=== PATIENT | male | born 1980 | race Caucasian/White ===

== ENCOUNTER 2024-05-26 07:56 | Day surgery (SDC) | payer OTHER, SELFPAY ==
[2024-05-26] VITALS (17 sets, daily range): BP systolic 93–132; BP diastolic 72–88; PULSE 65–85; RESP 14–20; TEMP 36.1–36.8; O2SAT 9–96; BMI 34.8
--- NOTE | 2024-05-26 | GALL_PTH ---
PATIENT: DEBRA NELSON LOC: [facility] [place][id number] AGE/SX: 43/M ROOM: RE05/26/[address]: Dr. Allen Cuba MD : 1980 BED: DIS: 05/26/2024 SPEC #: [id number] RECD: 05/26/24 13:36 STATUS: KAYKAY REAraceli #: [id number] HARRIET: 05/26/24 00:[address]: Allen Cuba DEPT: SURGICAL PATHOLOGY RECD BY: Sherman Chapin ENTERED: 05/26/24 13:36 SP TYPE: KOKO DORAN DR: KARLY Gudino Tissues: Gallbladder, NOS Procedures: Surgery Specimen Level III HEADER OPERATION: Laparoscopic cholecystectomy with IOC PRE-OP DIAGNOSIS: Cholecystitis TISSUE SUBMITTED: Gallbladder MICROSCOPIC DIAGNOSIS Gallbladder, cholecystectomy: Mild chronic cholecystitis. See comment. 05/27/2024 COMMENT No stones are identified in the container or in the gallbladder. MICROSCOPIC DESCRIPTION Slides are reviewed. GROSS DESCRIPTION Received is one container labeled with the patient's name and designated gallbladder. The specimen consists of a gallbladder measuring 6.5 cm in length and up to 4 cm in diameter. The external surface is pink-robles, smooth and glistening for the most part. Focally it is granular, hemorrhagic and contains cautery artifact. The gallbladder contains green-yellow mucoid bile. No stones are identified in the container or in the gallbladder. The mucosa is bile-stained and without any mass lesions. The gallbladder wall measures up to 0.5 cm in thickness. Increased amount of subserosal fat is noted. Tank Hoop Bender sections from the gallbladder and the cystic duct are submitted in one cassette. / SJ: 05/26/2024 TC:3 CPT: 43912
--- NOTE | 2024-05-26 08:09 | EKG12_ITS ---
Test Reason : PRE OP Blood Pressure : */* mmHG Vent. Rate : 78 BPM Atrial Rate : 78 BPM P-R Int : 174 ms QRS Dur : 84 ms QT Int : 380 ms P-R-T Axes : 3 -8 13 degrees QTcB Int : 433 ms Normal sinus rhythm Normal ECG No previous ECGs available Confirmed by BALWINDER JEREZ, FRANCI ([id number]), offline editor WERNER DUNN ([id number]) on 06/02/2024 6:43:03 AM Referred By: Allen Cuba Confirmed By: FRANCI BRITT MD
--- NOTE | 2024-05-26 08:38 | PCM.HP.STD ---
HPI - General General Date of Admission: 05/26/24 Date of Service: 05/26/24 Chief Complaint: Right upper quadrant pain HPI Narrative DEBRA NELSON, is a 43 M who presents for elective cholecystectomy. He has been having some right upper abdominal pain. Ultrasound showed some gallbladder wall thickening. I saw him in the office and offered a laparoscopic cholecystectomy as treatment. We discussed the details of the planned procedure and he wished to proceed. [facility] Medical History Cancer Rash PONV (postoperative nausea and vomiting) Rheumatoid arthritis Non-alcoholic cirrhosis Non-smoker Cholecystitis Acid reflux Abdominal pain Home Medications ?Medication ?Instructions ?Recorded ?Last Taken ?Type fenofibric acid (choline) 45 mg 45 mg PO QDAY 05/19/24 Unknown History capsule,delayed release fexofenadine 60 mg tablet (Charity 60 mg PO DAILY 05/19/24 Unknown History Allergy) multivitamin 1 tab PO QAM 05/19/24 Unknown History omega 1-soe-cgz-fish oil 300 2 cap PO QDAY 05/19/24 Unknown History mg-1,000 mg capsule (Fish Oil) omeprazole 20 mg capsule,delayed 20 mg PO QDAY 05/19/24 Unknown History release turmeric root extract 500 mg 500 mg PO QDAY 05/19/24 Unknown History capsule cholecalciferol (vitamin D3) 1,250 1,250 mcg PO MO 05/24/24 Unknown History mcg (50,000 unit) capsule etanercept 50 mg/mL (1 mL) 50 mg subcut TH 05/24/24 Unknown History subcutaneous pen injector (Enbrel SureClick) Allergy/AdvReac Type Severity Reaction Status Date / Time hydroxychloroquine Allergy Severe Rash Verified 05/24/24 08:23 Penicillins (PCN) Allergy Severe Hives Verified 05/24/24 08:23 Surgical History History of excision of mass (~2009) History of esophagogastroduodenoscopy (EGD) H/O hand surgery (~2004) H/O rhinoplasty History of liver biopsy Social History Smoking Status: Never smoker alcohol intake: never substance use type: does not use ROS Constitutional Constitutional: Reports systems reviewed and no addt'l complaints, except as documented Eyes Eyes: Reports systems reviewed and no addt'l complaints, except as documented ENT HEENT: Reports systems reviewed and no addt'l complaints, except as documented Cardiovascular Cardiovascular: Reports systems reviewed and no addt'l complaints, except as documented Respiratory/Chest Respiratory/Chest: Reports systems reviewed and no addt'l complaints, except as documented Gastrointestinal Gastrointestinal: Reports systems reviewed and no addt'l complaints, except as documented Genitourinary Genitourinary: Reports systems reviewed and no addt'l complaints, except as documented Physical Exam Const alert, oriented x3 and no apparent distress Assessment & Plan Assessment/Plan (1) Cholecystitis: PLAN: Plan The patient is a 43-year-old male with cholecystitis/cholelithiasis. He presents today for elective laparoscopic cholecystectomy. We discussed the details of the planned procedure and he wished to proceed. Surgery will begin shortly. Charges/Coding Visit Charges Inpatient E&M: 28963 Init Hosp L1
[2024-05-26] MEDS: 0.9% Normal Saline (1000mL) 1,000 ML 15 ML IV (08:59)
[2024-05-26 09:01] LABS: Hematocrit 42.7 % (40-54); Hemoglobin 14.4 g/dL (13.0-16.5); Mean Corp Hgb Conc 33.7 g/dL (32-36); Mean Corpuscular Volume 91.8 fL (80-94); Mean Platelet Vol. 9.8 fl (6.2-12.0); Platelet Count 276 K/mm3 (150-450); RBC Distribution Width CV 12.3 % (11.6-14.6); Red Blood Count 4.65 M/mm3 (4.6-6.2); White Blood Count 10.4 K/mm3 (4.4-11.0)
--- NOTE | 2024-05-26 09:08 | PCM.PRE.AN2 ---
ASA Classification* ASA Classification ASA Classification: 3 Assessment & Plan Anesthesia* Anesthesia Assessment Anesthesia Assessment: Discussed sedation and/or anesthesia options, risks, benefits, and alternatives with patient/parents/legal guardian/POA. Questions invited. The patient/parents/legal guardian/POA seems to understand and agrees to proceed with anesthesia plan. Reviewed the physical assessment, medical history, allergy history and patient home medications list prior to surgery/procedure/anesthetic and documented any changes. Performed airway and anesthesia risk assessments. Anesthesia Type Anesthesia Type: General History Source History Obtained from:: Patient and Chart Anesthesia Focused Assessment* Temperature: 98.1 F Pulse Rate: 77 Blood Pressure: 129/88 Respiratory Rate: 18 Pulse Ox: 96 Oxygen Delivery Method: Room Air Airway Assessment Mouth opens: >3 cm Mallampati Score: II Teeth Condition: Caps/Crowns (Patient has several crowns. All tight.) Neck Range of motion (ROM): Full ROM Focused Labs Anesthesia Preop lab: CBC WBC 10.4 K/mm3 (4.4-11.0) 05/26/24 08:41 RBC 4.65 M/mm3 (4.6-6.2) 05/26/24 08:41 Hgb 14.4 g/dL (13.0-16.5) 05/26/24 08:41 Hct 42.7 % (40-54) 05/26/24 08:41 Plt Count 276 K/mm3 (150-450) 05/26/24 08:41 CHEMISTRY Potassium Pending 05/26/24 08:41 Sodium Pending 05/26/24 08:41 BUN Pending 05/26/24 08:41 Creatinine Pending 05/26/24 08:41 Glucose Pending 05/26/24 08:41 COAG Pre-Assessment Diagnosis/Proposed Procedure Planned Operative Procedure(s): Laparoscopic, Cholecystectomy with IOC Anesthesia History Anesthesia History - mathematics lecturer: Anesthesia History - mathematics lecturer Hx Hospitalization No 05/24/24 08:26 Any Problems With Anesthesia Yes: PONV, LOW HEART RATE 05/24/24 08:26 WITH MAC ANES, DIFFICULT TO WAKE UP WITH GEN ANES Cholinesterase deficiency No 05/24/24 08:26 You/Your Family Experience No 05/24/24 08:26 fever (hyperthermia) with Relationship Recent Exposure to Contagious No 05/26/24 08:53 Disease Does patient have nerve No 05/24/24 08:26 stimulator Patient instructed to have device shut off --Does patient have Pacemaker No 05/26/24 08:53 or ICD? When Was Last Pacemaker Check QUESTION #4 FULL TEXT: You/Your Family Experience fever (hyperthermia) with Anesthesia Last Oral Intake Last Oral intake: Last Oral Intake NPO since 23:00 05/26/24 08:53 Meds taken in AM with sips of water? Meds patient instructed to take am of surgery Any additional information?: Yes Meds taken in AM with sips of water?: Yes PONV PONV - mathematics lecturer: PONV - mathematics lecturer Female No 05/24/24 08:26 HX of Motion Sickness Yes 05/24/24 08:26 HX of N/V After Surgery Yes 05/24/24 08:26 Non-Smoker Yes 05/24/24 08:26 Duration of Surgery greater Yes 05/24/24 08:26 than 60 minutes Number of Risk Factors 4 05/24/24 08:26 PONV Score Severe Risk 05/24/24 08:26 Height & Weight Height & Weight: Anesthesia: Height & Weight Height 5 ft 8 in 05/26/24 08:53 Weight: 104 kg 05/26/24 08:53 Body Mass Index (BMI) 34.8 05/26/24 08:53 Respiratory Assessment Respiratory Assessment - mathematics lecturer: Respiratory Tract Infection Hx - mathematics lecturer Hx Respiratory Tract Infection No 05/24/24 08:26 STOP Sleep Apnea STOP Sleep Apnea - mathematics lecturer: STOP Sleep Apnea - mathematics lecturer Hx Hypertension No 05/24/24 08:26 Hx Sleep Apnea No 05/24/24 08:26 CPAP BIPAP Do you snore loudly (louder No 05/24/24 08:26 than talking or can be heard Do you often feel tired/ No 05/24/24 08:26 fatigued/ sleepy during daytime? Has anyone observed you stop No 05/24/24 08:26 breathing during sleep? STOP Results Negative 05/24/24 08:26 QUESTION #5 FULL TEXT : Do you snore loudly (louder than talking or can be heard through closed doors)? Tobacco Use History Tobacco Use History - mathematics lecturer: Tobacco Use History - mathematics lecturer Tobacco Use Smoking Status Never smoker 05/24/24 08:26 Hx Tobacco Use No 05/24/24 08:26 Years Smoking Packs Smoked per Day Smoking Cessation Date was within the last 15 years Hx Smoking Cessation Date Hx Smoking Cessation Counseling Hematologic Medial History Hematologic Hx - mathematics lecturer: Hematologic Medical Hx - relay technician Hx of Blood Transfusion No 05/24/24 08:26 Hx of Transfusion in last 3 No 05/24/24 08:26 Months Date of Last Transfusion (if within last 3 months) Ever experience any problems No 05/24/24 08:26 with transfusion(s)? Specify any problems Hx of Preganancy in last 3 N/A 05/24/24 08:26 Months Nurse Filling Out Transfusion NBUCHER 05/24/24 08:26 & Questions: Date: 05/24/24 05/24/24 08:26 Time: 08:33 05/24/24 08:26 Patient unable to answer at this time (ie. confused, unrespo /Reproduction History /Reproductive History - mathematics lecturer: /Reproductive Hx- mathematics lecturer Hx Now No 05/24/24 08:26 Gestational Age (in weeks): EDC: Hx Hx Para Hx Section SAB No 05/24/24 08:26 Active Medications Active Medications: Current Medications Generic Name Dose Route Start Last Admin Trade Name Freq PRN Reason Stop Dose Admin Sodium Chloride 1,000 mls @ 15 mls/hr 05/26/24 08:15 05/26/24 08:59 IV 05/31/24 21:34 15 mls/hr .Q48H KAREN Administration Protocol [facility] Medical History Cancer Rash PONV (postoperative nausea and vomiting) Rheumatoid arthritis Non-alcoholic cirrhosis Non-smoker Cholecystitis Acid reflux Abdominal pain Home Medications ?Medication ?Instructions ?Recorded ?Last Taken ?Type fenofibric acid (choline) 45 mg 45 mg PO QDAY 05/19/24 05/24/24 History capsule,delayed release fexofenadine 60 mg tablet (Charity 60 mg PO DAILY 05/19/24 05/24/24 History Allergy) multivitamin 1 tab PO QAM 05/19/24 05/24/24 History omega 0-tum-gzq-fish oil 300 2 cap PO QDAY 05/19/24 05/24/24 History mg-1,000 mg capsule (Fish Oil) omeprazole 20 mg capsule,delayed 20 mg PO QDAY 05/19/24 05/26/24 History release turmeric root extract 500 mg 500 mg PO QDAY 05/19/24 05/24/24 History capsule cholecalciferol (vitamin D3) 1,250 1,250 mcg PO MO 05/24/24 05/23/24 History mcg (50,000 unit) capsule etanercept 50 mg/mL (1 mL) 50 mg subcut TH 05/24/24 05/05/24 History subcutaneous pen injector (Enbrel SureClick) Allergy/AdvReac Type Severity Reaction Status Date / Time hydroxychloroquine Allergy Severe Rash Verified 05/26/24 08:45 Penicillins (PCN) Allergy Severe Hives Verified 05/26/24 08:45 Surgical History History of excision of mass (~2009) History of esophagogastroduodenoscopy (EGD) H/O hand surgery (~2004) H/O rhinoplasty History of liver biopsy Social History Smoking Status: Never smoker alcohol intake: never substance use type: does not use Review of Systems (Anesthesia) ROS Narrative System reviewed and no additional complaints, except as documented.
--- NOTE | 2024-05-26 09:26 | RAD_ITS ---
STUDY: INTRAOPERATIVE CHOLANGIOGRAM. REASON FOR EXAM: Male, 43 years old. Laparoscopic cholecystectomy. FLUOROSCOPY TIME (if supplied): ( 9 seconds ) minutes/seconds. 7.18 mGy. TECHNIQUE: An intraoperative cholangiogram was performed by the surgeon. Imaging was submitted. COMPARISON: None. FINDINGS: The intra and extrahepatic biliary ducts are unremarkable. No intraluminal filling defect is seen. There is free flow contrast into the duodenum. RAD/Cholangiogram/ O R,Initial IMPRESSION: Unremarkable intraoperative cholangiogram. Electronically Signed: Agustín De La Cruz MD at 12:29 EST ,
[2024-05-26 09:32] LABS: AST(SGOT) 41 U/L (15-37); Alanine Aminotransfer ALT/SGPT 78 U/L (16-61); Alkaline Phosphatase 80 U/L (45-117); Anion Gap 7 (5-15); BUN 20 mg/dL (7-18); BUN/Creat Ratio 18.7 RATIO (10-20); Calcium,Total 10.3 mg/dL (8.5-10.1); Chloride 106 mmol/L (98-107); Creatinine, Serum 1.07 mg/dL (0.70-1.30); EST Glomerular Filtration Rate 80 mL/min (>60); Est Glom Filt Rate - Afr Amer 96 mL/min (>60); Estimated Creatinine Clearance 102.98 ml/min; Globulin 4.2 g/dL (2.2-4.2); Glucose 99 mg/dL (74-106); Potassium 3.8 mmol/L (3.5-5.1); Protein, Total 8.2 g/dL (6.4-8.2); Sodium Level 139 mmol/L (136-145)
[2024-05-26] MEDS: Bupiv/Epi 0.25% 30 ML Vial (10:46)
--- NOTE | 2024-05-26 10:46 | EX.PCM.DISCH ---
Discharge Instructions Diet Discharge Diet: Light diet - advance as tolerated Activity Discharge Activity: Return to Normal Activity and May Shower May shower in (days): 1 Ice area for (Minutes): 30 Lifting Restrictions: keep lifting under 20 pounds for 3-4 weeks Dressing / Incision Call your doctor if your incision/area has: Continuous Slow Oozing, Sudden Increased Bleeding, Increased Pain/ Swelling, Increased Redness, Foul Smelling Discharge and Swelling at the incision site Call your doctor if you observe: Fever of 101 or Higher Remove Dressing in: leave until fall off Cleanse incision/area with: Soap & Water Follow Up Care Please Follow Up With: Allen Cuba MD When: 2 weeks Test Results: Test results from this visit will be discussed in further detail at your follow-up appointment, if applicable. Discharge Plan Admission Primary Reason for Your Visit: yvette gimenez Attending Provider: Allen Cuba Primary Care Provider: Pili Anders Instructions Print Language: Citizen Of [place] Discharge Orders/Prescriptions Prescriptions: New oxycodone-acetaminophen [Percocet] 5-325 mg tablet 1 tab PO Q8H PRN (Reason: pain) 3 Days Qty: 14 0RF Continued omeprazole 20 mg capsule,delayed release(DR/EC) 20 mg PO QDAY turmeric root extract 500 mg capsule 500 mg PO QDAY omega 0-ynv-aqk-fish oil [Fish Oil] 300-1,000 mg capsule 2 cap PO QDAY multivitamin Tablet 1 tab PO QAM fexofenadine [Charity Allergy] 60 mg tablet 60 mg PO DAILY fenofibric acid (choline) 45 mg capsule,delayed release(DR/EC) 45 mg PO QDAY cholecalciferol (vitamin D3) 1,250 mcg (50,000 unit) capsule 1,250 mcg PO MO Enbrel SureClick 50 mg/mL (1 mL) pen injector 50 mg subcut TH Other Ambulatory Orders: 12 Lead EKG (Routine) Timeframe: 20240526 Location: None Selected Ordered By: Dr. Allen Cuba Referrals / Follow Up: Pili Anders PA [Primary Care Provider] - Disposition Disposition (needs filled in before D/C Order can be placed): Home, Self Care
--- NOTE | 2024-05-26 10:49 | OP.PCM_ITS ---
Problems Associated Problem List Diagnoses (1) Cholecystitis: Procedures Digestive 40xxx-49xxx: 12689 Laparo cholecystectomy/graph Operative Report (Standard) Operative Information Date of Procedure: 05/26/24 Pre-Operative Diagnosis: Cholecystitis Post-Operative Diagnosis: Same Surgery/Procedure Performed: Laparoscopic cholecystectomy with intraoperative cholangiograms dividing machine operator helper: Yes Wheelchair Van Driver: Thanh David Tasks completed by volleyball assistant coach: Closing and Retracting Additional assistant account executive?: No Type of Anesthesia: General and Local RN Documented Start/Stop Times: Operation Date: 05/26/24 09:30 Case Time Into Pre-Op 05/26/24 08:11 Out of Pre-Op 05/26/24 09:27 Anesthesia Start 05/26/24 09:28 Into Room 05/26/24 09:28 Procedure Start 05/26/24 09:55 Procedure End 05/26/24 10:46 Anesthesia End 05/26/24 10:55 Out of Room 05/26/24 10:55 Into Recovery 05/26/24 10:57 Procedure Start Time: 09:55 Procedure Stop Time: 10:46 Select all DRAINS/GRAFTS/IMPLANTS that apply: None Special Medications: None Estimated Blood Loss: Minimal Specimen collected: Yes Description of specimen(s) removed: Gallbladder Description of surgery: The patient is a 43-year-old male whom I seen in the office recently with complaints of right upper quadrant abdominal pain. He was evaluated by his PCP who ordered an ultrasound of the right upper quadrant. This showed gallbladder wall thickening up to about 5 mm. There were no stones. His symptoms seem to be consistent with biliary colic. As a result, I recommended a laparoscopic cholecystectomy with intraoperative cholangiograms as treatment. We discussed the details of the planned procedure as well as the risks, benefits, and alternatives. He wished to proceed. The patient was brought to the operating room today following informed consent. No antibiotics were indicated. He was placed supine on the operative table with arms outstretched on arm boards. General endotracheal anesthesia was induced. Once adequately anesthetized his arms were secured to arm boards extended. The abdomen was then clipped prepped and draped in the usual sterile manner. After allowing sufficient time for skin prep to dry, a #11 blade was then used to make a 5 mm incision just below the umbilicus. Through this a 5 mm trocar was placed optically. This was placed without incident. Once in place the abdomen is then fully insufflated with CO2 gas. A 5 mm 0 degree scope was inserted. There were no signs of bowel or vascular injury. Next, a 10 mm incision and trocar were placed in the epigastric region. This was performed under direct visualization and without difficulty. Next two 5 mm trocars were placed under direct visualization in the right upper quadrant. The patient was then positioned with some head up and rolled of the bed to the left to improve visualization. The gallbladder was identified and was reflected in a cephalad direction. There was adhesed omentum to the undersurface of the gallbladder. This was taken down using combination of electrocautery connected to the [place] dissector. Once this fat was swept downward, the infundibulum the gallbladder was identified. This was then carefully dissected using a [place] dissector as well as a laparoscopic Kitner. Hook electrocautery was used to incise the peritoneum on either side of the gallbladder to improve mobility and aid in dissection of the infundibulum. The cystic duct and cystic artery were both dissected out circumferentially. There were 2 and only 2 structures going to and from the gallbladder thus confirming the critical view of safety. A 10 mm clip healthcare network pricing consultant was then used to place a 10 mm clip on the gallbladder side the cystic duct. Scissors were then used to make a small ductotomy. Through this the cholangiogram catheter was then inserted. Cholangiograms were then performed and showed good opacification of the biliary tree. There were no obvious filling defects. We were clearly within the cystic duct. The cholangiogram catheter was then removed and then 10 mm clips x 3 were applied to the cystic duct stump. The cystic duct was then transected. The cystic artery was then clipped twice proximally and once distally and this too was then transected. The gallbladder was then bovied off the undersurface of the liver using a J-hook and electrocautery. There was some spillage of bile. This was promptly suctioned out and copiously irrigated. Once the gallbladder was free it was placed into a bag and brought out through the 10 mm trocar site. The trocar was then replaced. The right upper quadrant was then copiously irrigated until crystal-clear the liver bed was nicely hemostatic. There is no areas that required further cauterization. With this the abdomen was then inspected and no obvious signs of bowel or vascular injury were noted. Next the fascia at the 10 mm trocar site was closed using 0 PDS with the aid of the fascial closure device. This closed the fascia nicely. The remaining trocars were then opened up. Insufflation was allowed to escape. A total of 20 cc of local anesthetic was injected into the skin incisions. The skin incisions were then closed using 4-0 Vicryl. Skin glue was applied as dressing. The patient was then awakened from anesthesia and taken to PACU in good condition. He tolerated the procedure very well A HOME SECURITY PROFESSIONAL was utilized as a surgical first assistant. His role included gallbladder retraction and assistance with skin closure. Surgical Findings: Normal cholangiograms Complications Complications: No Admit VTE Documentation VTE Present on Admission: No VTE Mechan Device Prophylaxis: SCD's VTE Pharm Prophylaxis ordered?: No Reason prophylaxis not ordered: Treatment Not Indicated
--- NOTE | 2024-05-26 11:04 | PCM.POST.ANE ---
Anesthesia: Postop Eval I Current Vital Signs Temperature: 96.9 F Pulse Rate: 80 Blood Pressure: 129/85 Respiratory Rate: 20 Pulse Ox: 95 Assessment Airway patent: Yes Spontaneous unlabored respirations: Yes nausea: No Vomiting: No Anesthesia Complication: No Fluid Hydration Crystalloid volume administer (ml): 900 Total IV fluid infused: 900 Progress Note Anesthesia document: Postop Eval 1 completed: Yes
[2024-05-26] MEDS: oxyCODONE 5 MG Tablet PO (13:57)
[2024-05-26] MEDS: Acetaminophen 325 MG Tablet PO (13:57)
--- NOTE | 2024-05-26 19:06 | POSTOPAN2_ITS ---
Anesthesia Postop Eval I Sum Postop Eval Completion status Anesthesia document: Postop Eval 1 completed: Yes Anesthesia Postop Eval I Summary Anesthesia Postop Eval I Summary: Anesthesia Postop Eval I: Assessment Summary Airway patent Yes 05/26/24 11:04 [email or web address] Spontaneous unlabored Yes 05/26/24 11:04 [email or web address] respirations Mental status nausea No 05/26/24 11:04 [email or web address] Vomiting No 05/26/24 11:04 [email or web address] Anesthesia Postop Eval I: Fluid Summary Crystalloid volume administer 900 05/26/24 11:04 [email or web address] (ml) Colloids volume administered ( ml) Blood Product volume administered (ml) Total IV fluid infused 900 05/26/24 11:04 [email or web address] Anesthesia Postop Eval I: Summary Notes Anesthesia Complication No 05/26/24 11:04 [email or web address] Anesthesia Complication Comment: Post-operative progress note Anesthesia: Postop Eval II Evaluation Mental status: Awake and Calm Pain Level: 1 nausea: No Vomiting: No Complications Anesthesia Complication: No
--- NOTE | 2024-05-26 19:06 | PCM.POSTANE2 ---
Anesthesia Postop Eval I Sum Postop Eval Completion status Anesthesia document: Postop Eval 1 completed: Yes Anesthesia Postop Eval I Summary Anesthesia Postop Eval I Summary: Anesthesia Postop Eval I: Assessment Summary Airway patent Yes 05/26/24 11:04 [email or web address] Spontaneous unlabored Yes 05/26/24 11:04 [email or web address] respirations Mental status nausea No 05/26/24 11:04 [email or web address] [email or web address] Vomiting No 05/26/24 11:04 [email or web address] Anesthesia Postop Eval I: Fluid Summary Crystalloid volume administer 900 05/26/24 11:04 [email or web address] (ml) Colloids volume administered ( ml) Blood Product volume administered (ml) Total IV fluid infused 900 05/26/24 11:04 [email or web address] Anesthesia Postop Eval I: Summary Notes Anesthesia Complication No 05/26/24 11:04 [email or web address] [email or web address] Anesthesia Complication Comment: Post-operative progress note Anesthesia: Postop Eval II Evaluation Mental status: Awake and Calm Pain Level: 1 nausea: No Vomiting: No Complications Anesthesia Complication: No
== END 2024-05-26 15:27 | disposition home or self-care (01) ==
LOC: SDC 07:57 → AC 08:05
PROVIDERS: PCP Physician Assistant; Referring Provider Surgery; Visit Provider Surgery
PROC: (CPT 47610; principal; 2024-05-26 09:10)
DX: K81.1 Chronic cholecystitis (principal); M06.9 Rheumatoid arthritis, unspecified; K21.9 Gastro-esophageal reflux disease without esophagitis; Z88.0 Allergy status to penicillin
CPT/HCPCS: 47563; 00790; 74300; 76000; 80053; 85027; 88304; 93005; C1769; J2405